=== PATIENT | male | born 1985 | race Caucasian/White ===

== ENCOUNTER → 2018-06-10 | Outpatient (REF) | payer OTHER | LOC: M LAB REF 10:38 | DX: N39.0 Urinary tract infection, site not specified (principal) | CPT/HCPCS: 87086 ==

== ENCOUNTER → 2018-07-24 | Outpatient (CLI) | payer OTHER ==
--- NOTE | 2018-07-25 03:27 | REP ---
Clinical: Anatomical evaluation. Comparison: None . Findings: Examination demonstrates a single live intrauterine in breech presentation. motion is identified by technologist. Placenta is noted posterior and grade grade 1 without evidence for placenta previa or abruption. Amniotic fluid volume is normal. Cervix measures 5.6 cm in length and appears closed. No evidence for nuchal cord. Gestational age by LMP 26 weeks 3 day with HILARY 10/27/2018 . Gestational age by current measurements 28 weeks 2 days with HILARY 09/27/2018 . FHR equals 128 beats per minute. BPD 6.9 cm 27 weeks 5 days HC 25.8 cm 28 week 0-day AC 24.7 cm 29 weeks 0 days FL 5.3 cm 28 weeks 1 day HL 4.8 cm 28 weeks 2 days HC/AC ratio 1.04 Estimated weight 1238 grams ( 48th percentile). Umbilical cord SD ratio: 4.26 (2.58 - 3.89). Anatomical assessment demonstrates normal structures including cranium, choroid plexus, cavum, cerebellum/posterior fossa, facial features, lungs, four-chamber heart/ventricular outflow tracts, diaphragm, stomach, cord insertion/three-vessel cord, kidneys/bladder, spine, and extremities. Limited evaluation of the facial profile noted along with mild renal pelviectasis within normal range. Impression: Single live intrauterine in breech presentation. Mildly elevated umbilical cord SD ratio. Anatomical findings as noted above. Electronically Signed by Jm Hunt MD 07/25/2018 03:19 A
== END ==
LOC: M RAD 15:23
PROVIDERS: ATTEND Obstetrics & Gynecology
DX: Z34.82 Encounter for supervision of other normal pregnancy, second trimester (principal); Z3A.28 28 weeks gestation of pregnancy

== ENCOUNTER → 2018-08-01 | Outpatient (CLI) | payer OTHER ==
[2018-08-01 12:30] LABS: BASO % 0.4 % (0.0-1.0); EOS # 0.1 10^3/uL (0.0-0.50); EOS % 0.9 % (0.0-3.0); HEMATOCRIT 33.5 % (36.0-47.0); LYMPH # 1.5 10^3/uL (1.5-4.5); LYMPH % 21.4 % (24.0-44.0); MEAN CORPUSCULAR HEMOGLOBIN 28.4 pg (27.0-33.0); MEAN CORPUSCULAR HGB CONC 32.8 g/dl (32.0-36.5); MEAN CORPUSCULAR VOLUME 86.6 fl (80.0-96.0); MONO # 0.4 10^3/uL (0.0-0.8); MONO % 5.8 % (0.0-5.0); NEUTROPHILS # 4.8 10^3/uL (1.8-7.7); NEUTROPHILS % 71.2 % (36.0-66.0); PLATELET COUNT, AUTOMATED 248 10^3/uL (150-450); RED BLOOD COUNT 3.87 10^6/uL (4.00-5.40); WHITE BLOOD COUNT 6.8 10^3/uL (4.0-10.0)
[2018-08-01 12:59] LABS: GLUCOSE CHALLENGE TEST 1 HOUR 199 MG/DL (LESS THAN 140)
[2018-08-01 14:19] LABS: CHLAMYDIA DNA AMPLIFICATION NEGATIVE (NEGATIVE); GC DNA AMPLIFICATION NEGATIVE (NEGATIVE)
[2018-08-02 11:04] LABS: RUBELLA IgG QUALITATIVE IMMUNE (IMMUNE)
[2018-08-02 11:32] LABS: HEPATITIS C VIRUS ABY INDEX 0.1 INDEX (<0.8)
[2018-08-02 11:33] LABS: HIV 1&2 SCREEN CENTAUR NEGATIVE (NEGATIVE)
== END ==
LOC: M WUC 09:16
PROVIDERS: ATTEND Advanced Practice Midwife
DX: Z36.89 Encounter for other specified antenatal screening (principal); Z3A.11 11 weeks gestation of pregnancy

== ENCOUNTER → 2018-10-03 | Outpatient (CLI) | payer OTHER ==
--- NOTE | 2018-10-04 04:43 | REP ---
Clinical: Anatomical evaluation. Comparison: Growth 07/24/2018 . Findings: Examination demonstrates a single live intrauterine in cephalic presentation. motion is identified by technologist. Placenta is noted left lateral and grade grade zero without evidence for placenta previa or abruption. Amniotic fluid volume is normal. Cervix measures 3.0 cm in length and appears closed. Nuchal cord cannot be excluded Gestational age by LMP 36 weeks 4 days with HILARY 10/27/2018 . Gestational age by current measurements 35 weeks 6-day with HILARY 11/01/2018 . FHR equals 132 beats per minute. BPD 8.7 cm 35 weeks 1 day HC 32.0 cm 36 weeks 0 days AC 32.8 cm 36 weeks 5 days FL 7.0 cm 35 weeks 5 days HL 6.2 cm 35 weeks 6 days HC/AC ratio 0.97 Estimated weight 2874 grams ( 46th percentile). Amniotic fluid index: 9.8 cm Biophysical profile score: 8/80 Umbilical cord SD ratio: 1.85 Limited anatomical assessment demonstrates bilateral renal pelviectasis within normal range for age. Impression: 1. Single live advanced gestation in cephalic presentation demonstrating appropriate interval growth. 2. Nuchal cord cannot be excluded. Electronically Signed by Jm Hunt MD 10/04/2018 04:35 A
== END ==
LOC: M RAD 11:34
PROVIDERS: ATTEND Midwife
DX: Z34.83 Encounter for supervision of other normal pregnancy, third trimester (principal); Z3A.35 35 weeks gestation of pregnancy

== ENCOUNTER → 2019-06-27 | Outpatient (CLI) | payer MEDICAID, OTHER ==
--- NOTE | 2019-06-27 17:30 | REP ---
OB ULTRASOUND: Real-time sonographic evaluation of the gravid uterus performed. There is a single living intrauterine gestation, estimated gestational age 9 weeks 5 days based on a crown rump length of 29 mm, EDC 01/25/2020. No subchorionic hemorrhage is seen. Complex cystic structure in the right ovary probably represents a complex corpus luteum 2.6 x 1.3 x 1.6 cm. Left ovary appears normal. Unreviewed
== END ==
LOC: M RAD 16:11
PROVIDERS: ATTEND Nurse Practitioner Family
DX: Z32.01 Encounter for pregnancy test, result positive (principal); Z3A.09 9 weeks gestation of pregnancy

== ENCOUNTER → 2022-01-05 | Outpatient (CLI) | payer MEDICAID, OTHER | LOC: M RAD 14:02 | PROVIDERS: ATTEND Physician Assistant Medical | DX: M79.671 Pain in right foot (principal) ==

== ENCOUNTER → 2023-03-30 | Outpatient (REF) | payer OTHER ==
[2023-03-30 23:13] LABS: RSV AMPLIFICATION NEGATIVE (NEGATIVE)
== END ==
LOC: M LAB REF 21:13
PROVIDERS: ATTEND Physician Assistant
DX: B34.9 Viral infection, unspecified (principal)